=== PATIENT | male | born 1950 | race Caucasian/White ===

== ENCOUNTER → 2020-04-25 | Outpatient (CLI) | payer MEDICARE, OTHER | LOC: LABNPT 06:48 | PROVIDERS: ATTEND Orthopaedic Surgery | DX: Z20.828 Contact with and (suspected) exposure to other viral communicable diseases (principal) | CPT/HCPCS: 87635 ==

== ENCOUNTER → 2020-09-12 | Outpatient (CLI) | payer MEDICARE | LOC: LAB FS 10:07 | PROVIDERS: ATTEND Orthopaedic Surgery | DX: Z01.812 Encounter for preprocedural laboratory examination (principal); Z20.828 Contact with and (suspected) exposure to other viral communicable diseases | CPT/HCPCS: 87635 ==

== ENCOUNTER 2023-01-02 05:40 | Outpatient (CLI) | payer MEDICARE ==
[~2023-01-02] VITALS: Ht 162.6 cm; Wt 78.5 kg
[2023-01-02] MEDS ORDERED: LEVO25TA5 PO (12:08)
[2023-01-02] MEDS ORDERED: CELE100C84 PO (12:08)
[2023-01-02] MEDS ORDERED: GABA-490 PO (12:08)
[2023-01-02] MEDS ORDERED: EZET10TA49 PO (12:08)
[2023-01-02] MEDS ORDERED: AMIL5TAB3 PO (12:08)
[2023-01-02] MEDS ORDERED: MTP100TCR PO (12:08)
[2023-01-02] MEDS ORDERED: ALPR0.254 PO (12:08)
[2023-01-02] MEDS ORDERED: MONT-40 PO (12:08)
[2023-01-02] MEDS ORDERED: FLUT15.845 NS (12:08)
[2023-01-02] MEDS ORDERED: TMSL.4C PO (12:08)
[2023-01-02] MEDS ORDERED: SILD25TA9 PO (12:08)
== END 2023-01-02 12:11 | disposition home or self-care (01) ==
LOC: PREOP 05:40
PROVIDERS: ATTEND Surgery
DX: Z01.818 Encounter for other preprocedural examination (principal)

== ENCOUNTER 2023-01-09 13:18 | Day surgery (SDC) | payer MEDICARE, OTHER ==
[2023-01-09] VITALS (8 sets, daily range): BP systolic 99–144; BP diastolic 62–80
[~2023-01-09] VITALS: Ht 162 cm; Wt 78.5 kg
[~2023-01-09 13:18] MED LIST: ALPR0.254 PO; AMIL5TAB3 PO; CELE100C84 PO; EZET10TA49 PO; FLUT15.845 NS; GABA-490 PO; LEVO25TA5 PO; MONT-40 PO; MTP100TCR PO; SILD25TA9 PO; TMSL.4C PO
[2023-01-09] MEDS ORDERED: LACTATED RINGERS 1,000 ML IV ONE (13:26)
[2023-01-09] MEDS ORDERED: LACTATED RINGERS 1,000 ML IV STA (13:27)
[2023-01-09] MEDS ORDERED: LIDOCAINE JELLY 2% 6 ML SYRINGE MM PRN (13:30)
[2023-01-09] MEDS ORDERED: ONDANSETRON 4 MG/2 ML (SDV) Z0FRAN IVP PRN (13:30)
[2023-01-09] MEDS ORDERED: ONDANSETRON 4 MG (ZOFRAN) ORAL DISSOLVE TAB PO PRN (13:30)
--- NOTE | 2023-01-09 13:30 | Progress Note-Pre Operative ---
Pre-Operative Progress Note Date of Available H&P: Jan 09, 2023 Date H&P Reviewed: Jan 09, 2023 Time H&P Reviewed: 13:30 History & Physical: No changes noted Pre-Operative Diagnosis: screening o JOSIE HORAN MD Jan 09, 2023 13:30
--- NOTE | 2023-01-09 13:32 | Discharge Inst-Surgical ---
D/C Lap Instructions-AUNG Follow Up Activity as tolerated High Fiber Diet 25g or more per day Avoid Alcohol, Caffeine, Spicy [place] and Acid foods. Drink 64 fluid oz or more of fluids per day. Symptoms to Report: Fever over 101 degree F, Nausea/Vomiting If any problems/questions: Contact your physician or go to Emergency Room JOSIE HORAN MD Jan 09, 2023 13:31
[2023-01-09] MEDS ORDERED: PROPOFOL INJECTION 50 ML IV ONE (14:35)
[2023-01-09] MEDS ORDERED: LIDOCAINE JELLY 2% 6 ML SYRINGE ONE (14:36)
[2023-01-09] MEDS ORDERED: MIDAZOLAM 2 MG/2 ML (VERSED) VIAL ONE (14:36)
--- NOTE | 2023-01-09 14:58 | Anesthesia-General Post-Op ---
MAC Patient Condition Mental Status/LOC: Same as Preop Cardiovascular: Satisfactory Nausea/Vomiting: Absent Respiratory: Satisfactory Pain: Controlled Complications: Absent Post Op Complications Complications None Follow Up Care/Instructions Patient Instructions None needed. Anesthesiology Discharge Order Discharge Order Patient is doing well, no complaints, stable vital signs, no apparent adverse anesthesia problems. No complications reported per nursing. ONEAL SERNA CRNA Jan 09, 2023 14:58
--- NOTE | 2023-01-09 15:09 | Progress Note-Post Operative ---
Post-Operative Progess Note Surgeon (s)/Dining Room Busser (s) Surgeon JOSIE HORAN MD Dining Room Busser: none Pre-Operative Diagnosis screening colo Post-Operative Diagnosis mild chronic stage 2 ext and int hemorrhoids, moderate sigmoid diverticulosis. Procedure & Operative Findings Date of Procedure 01/09/23 Procedure Performed/Findings colonoscopy. Anesthesia Type mac Estimated Blood Loss Estimated blood loss (mL): minimal Specimens/Packing Specimens Removed none JOSIE HORAN MD Jan 09, 2023 15:09
--- NOTE | 2023-01-09 18:39 | OPERATIVE REPORT ---
DATE OF SERVICE: 01/09/2023 ATTENDING PRIMARY CARE PHYSICIAN: Jovanny Arias DO PREOPERATIVE DIAGNOSIS: Screening colonoscopy. POSTOPERATIVE DIAGNOSES: Mild chronic stage II, external and internal hemorrhoids, moderate sigmoid diverticulosis. PROCEDURE: Colonoscopy. SURGEON: Josie Horan MD ANESTHESIA: Monitored anesthesia care. ESTIMATED BLOOD LOSS: Minimal. FINDINGS: Mild chronic stage II, external and internal hemorrhoids, moderate sigmoid diverticulosis. DISPOSITION: The patient tolerated the procedure well. INDICATIONS: The patient is a 72-year-old male referred over to us for screening colonoscopy. He has not had a colonoscopy up to this point in his life. He does not report any major issues with diarrhea, nor constipation as well as no red blood per rectum, nor any dark tarry stools. He also does not report any family history of colon cancer. DESCRIPTION OF PROCEDURE: The patient was brought to the endoscopy suite and laid in the left lateral decubitus position. After adequate IV pain and sedative medications and monitored anesthesia care, a digital rectal examination was performed. Chronic stage II, external and internal hemorrhoids were identified, which were not actively edematous nor inflamed and no bleeding. Normal sphincter tone was felt and there were no palpable masses. Prostate gland was palpable and appeared normal. The endoscope was then intubated into the anus and the rectum gently insufflated. The endoscope was then advanced through the valves of Klein of the rectum with no polyps or any neoplasms identified. We then proceeded through the sigmoid colon where moderate sigmoid diverticulosis identified. The endoscope was then advanced through the remainder of the descending, transverse and ascending colon to the cecum, which were normal. There were no polyps or any neoplasms identified throughout the colon or rectum. The endoscope was then slowly withdrawn while taking a second look and suctioning of residual air with no additional findings. The patient tolerated the procedure well. We will recommend the necessary lifestyle and dietary accommodation including incorporation of a high-fiber diet with a fiber supplementation, which should equal or exceed 30 grams daily as well as significant amounts of water to promote soft consistency stools on a daily basis. If he is able to achieve this, this will prevent hemorrhoidal flareups as well as any further development or complications associated with diverticulosis. Fiber also in acts as an antioxidant and decreases the risk of colon polyps and colon cancer. If he is asymptomatic, he does not need another colonoscopy for another 10 years. Job ID: [id number] DocumentID: [id number] Dictated Date: 01/09/2023 15:01:30 Dumpster Driver Date: 01/09/2023 18:36:00 Dictated By: JOSIE HORAN MD MTDD
== END 2023-01-09 16:00 | disposition home or self-care (01) ==
LOC: ENDO 13:18
PROVIDERS: ATTEND Surgery
DX: Z12.11 Encounter for screening for malignant neoplasm of colon (principal); K57.30 Diverticulosis of large intestine without perforation or abscess without bleeding; K64.1 Second degree hemorrhoids; K64.4 Residual hemorrhoidal skin tags; Z87.891 Personal history of nicotine dependence